=== PATIENT | female | born 1940 | race Caucasian/White ===

== ENCOUNTER 2018-10-09 16:14 | Inpatient (IN) | payer MEDICARE ==
[2018-10-09] MEDS ORDERED: DULCOLAX10 MG/SUPP RC (16:21)
[2018-10-09] MEDS ORDERED: BISOPROLOL-HCT1 EAC1 PO (16:24)
[2018-10-09 16:49] LABS: HEMATOCRIT 31.4 % (36.0-48.0); HEMOGLOBIN 10.8 g/dL (12-16); MCH 27.5 pg (26.0-34.0); MCHC 34.4 g/dL (31.0-37.0); MCV 79.9 fL (80.0-100.0); RBC 3.93 10x6/uL (4.00-5.40); RDW 15.2 % (11.5-14.5)
[2018-10-09 17:03] LABS: ALBUMIN 3.3 g/dL (3.4-5.0); ANION GAP 13.2 mmol/L (8-16); BILIRUBIN - TOTAL 0.88 mg/dL (0.2-1.3); CALCIUM 8.3 mg/dL (8.5-10.1); CARBON DIOXIDE 24.7 mmol/L (21.0-32.0); POTASSIUM - SERUM 3.9 mmol/L (3.5-5.1); PROTEIN - SERUM 6.4 g/dL (6.4-8.2)
[2018-10-09 17:07] LABS: TROPONIN-I 0.031 ng/mL (0.000-0.060)
[2018-10-09 17:09] LABS: WBC 1.1 10x3/uL (4.8-10.8)
[2018-10-09 17:11] LABS: PLATELET COUNT 30 10x3/uL (130-400)
[2018-10-09 17:32] LABS: APPEARANCE CLEAR (CLEAR); BILIRUBIN NEGATIVE (NEGATIVE); COLOR YELLOW (YELLOW); GLUCOSE NEGATIVE (NEGATIVE); KETONE NEGATIVE (NEGATIVE); NITRITE NEGATIVE (NEGATIVE); PROTEIN 1+ mg/dL (NEGATIVE); UROBILINOGEN NORMAL (NORMAL)
[2018-10-09 17:33] LABS: EPITHELIAL CELLS OCC /hpf (0-5); RED CELLS - URINE OCC /hpf (0-5); WHITE CELLS - URINE 0-5 /hpf (0-5)
[2018-10-09 17:34] LABS: BACTERIA MANY /hpf (NONE SEEN)
[2018-10-09 17:45] LABS: APTT 35.3 SECONDS (22.8-39.4); INR 1.06 (0.85-1.17); PROTIME 13.3 SECONDS (11.6-15.0)
[2018-10-09 17:48] VITALS: BP 116/50
[2018-10-09 17:48] LABS: LYMPHOCYTES 36 % (15-50); MONOCYTES 4 % (2-11); NEUTROPHILS 56 % (40-80); PLATELET ESTIMATE DECREASED
[2018-10-09 18:09] LABS: % SATURATION 12 % (15-55); IRON 29 ug/dl (35-150); TOTAL IRON BIND CAPACITY 234 ug/dl (260-445); UNSAT IRON BIND CAPACITY 205 ug/dl (150-375)
[2018-10-09 18:30] VITALS: BP 119/53
--- NOTE | 2018-10-09 19:21 | NUR ---
REPORT CALLED TO [facility]ORY LAMB BY SBAR FORMAT
--- NOTE | 2018-10-09 19:45 | NUR ---
RECEIVED PT TO FLOOR FROM ER VIA STRETCHER. PT ALERT & ORIENTED. REVIEWED HOME MEDS AND HISTORY. CHIEF COMPLAINT IS WEAKNESS AND HEADACHE. PT WAS GIVEN PAIN MED IN ER AND NOW RATES PAIN 2-3 OUT OF 10. ASSISTED PT UP TO BATHROOM TO VOID. NO OTHER NEEDS. WILL CONTINUE TO MONITOR.
[2018-10-09] MEDS ORDERED: BISOPROLOL FUMARATE PO (19:48)
[2018-10-09] MEDS ORDERED: HYDROCHLOROTH12.5 M1 PO (19:50)
[2018-10-09] MEDS ORDERED: BACLOFEN10 MG PO (19:51)
[2018-10-09 23:49] VITALS: BP 120/56; BMI 21.1
[2018-10-10 00:33] VITALS: BP 103/47
[2018-10-10 04:39] VITALS: BP 116/46
[2018-10-10 05:29] LABS: BASOPHILS 6.8 % (0-2); EOSINOPHILS 0 % (0-7); HEMATOCRIT 30.2 % (36.0-48.0); HEMOGLOBIN 10.2 g/dL (12-16); IMMATURE GRANULOCYTES 1.1 % (0-5); LYMPHOCYTES 46.6 % (15-50); MCH 27.4 pg (26.0-34.0); MCHC 33.8 g/dL (31.0-37.0); MCV 81.2 fL (80.0-100.0); MONOCYTES 11.4 % (2-11); NEUTROPHILS 34.1 % (40-80); RBC 3.72 10x6/uL (4.00-5.40); RDW 15.5 % (11.5-14.5)
[2018-10-10 05:34] LABS: WBC 0.9 10x3/uL (4.8-10.8)
[2018-10-10 05:35] LABS: PLATELET COUNT 26 10x3/uL (130-400)
[2018-10-10 06:00] LABS: ALBUMIN 2.8 g/dL (3.4-5.0); ALKALINE PHOSPHATASE 59 U/L (46-116); ALT (SGPT) 56 U/L (10-68); BILIRUBIN - TOTAL 0.73 mg/dL (0.2-1.3); CALCIUM 7.6 mg/dL (8.5-10.1); CARBON DIOXIDE 25.9 mmol/L (21.0-32.0); CHLORIDE - SERUM 98 mmol/L (98-107); GLUCOSE 88 mg/dL (74-106); POTASSIUM - SERUM 3.6 mmol/L (3.5-5.1); PROTEIN - SERUM 5.7 g/dL (6.4-8.2); SODIUM 132 mmol/L (136-145); eGFR NON AFRICAN AMERICAN 86 mL/min (90-120)
[2018-10-10 06:06] LABS: CALC OSMOLALITY 267 mosm/kg (275-300); CREATININE - SERUM 0.7 mg/dL (0.6-1.3); UREA NITROGEN 23 mg/dL (7-18)
[2018-10-10 08:09] VITALS: BP 104/43
--- NOTE | 2018-10-10 09:00 | NUR ---
ALERT AND ORIENTED X3 WITH GENERALIZED ACHING NOTED. PT ON NEUTROPENIC ISOLATION AT THIS TIME. LEIA MAT IN PLANCE DUE TO FALL RISK. LUNGS CTA AND HRRR. ENCOURAGED TO USE CALL LIGHT FOR ASSSIT.
[2018-10-10 12:12] VITALS: BP 112/50
[2018-10-10 15:18] LABS: ERYTHROCYTE SEDIMENTATION RATE 5 mm/hr (0-30)
[2018-10-10 16:22] VITALS: BP 124/54
[2018-10-10 20:28] VITALS: BP 122/50
--- NOTE | 2018-10-10 21:40 | NUR ---
ASSISTED PT UP TO BATHROOM. STEADY GAIT. ASSESSMENT COMPLETE PER FLOW-SHEET. ANTIBIOTIC INFUSING. DENIES PAIN. STATES SHE IS "FEELING A LITTLE BETTER TODAY." NO OTHER NEEDS. WILL CONTINUE TO MONITOR.
[2018-10-11 05:46] LABS: HEMATOCRIT 27.5 % (36.0-48.0); HEMOGLOBIN 9.2 g/dL (12-16); MCH 27.2 pg (26.0-34.0); MCHC 33.5 g/dL (31.0-37.0); MCV 81.4 fL (80.0-100.0); MEAN PLATELET VOLUME 11.2 fL (7.4-10.4); RBC 3.38 10x6/uL (4.00-5.40); RDW 15.6 % (11.5-14.5)
[2018-10-11 05:47] LABS: PLATELET COUNT 40 10x3/uL (130-400); WBC 1.3 10x3/uL (4.8-10.8)
[2018-10-11 06:18] LABS: CALC OSMOLALITY 262 mosm/kg (275-300); CALCIUM 7.3 mg/dL (8.5-10.1); CARBON DIOXIDE 25.1 mmol/L (21.0-32.0); CHLORIDE - SERUM 100 mmol/L (98-107); CREATININE - SERUM 0.7 mg/dL (0.6-1.3); GLUCOSE 83 mg/dL (74-106); SODIUM 132 mmol/L (136-145); UREA NITROGEN 10 mg/dL (7-18); eGFR NON AFRICAN AMERICAN 86 mL/min (90-120)
[2018-10-11 07:29] LABS: LYMPHOCYTES 42 % (15-50); MONOCYTES 18 % (2-11); NEUTROPHILS 38 % (40-80); PLATELET ESTIMATE DECREASED; PLATELET MORPHOLOGY NORMAL PLT MORPH
[2018-10-11 09:39] VITALS: BP 121/70
[2018-10-11 14:17] VITALS: BP 114/55
[2018-10-11 16:59] VITALS: BP 118/56
[2018-10-11 20:00] VITALS: BP 122/59
--- NOTE | 2018-10-11 22:49 | NUR ---
PT C/O OF GENERALIZED PAIN 08/12. GAVE MORPHINE 2 MG IV PUSH. INSURANCE CLAIMS SPECIALIST GIVING PT BED BATH AND CHANGING LINEN. ASSESSMENT COMPLETE PER FLOW-SHEET. NO OTHER NEEDS. WILL REASSESS AND CONTINUE TO MONITOR.
[2018-10-12] VITALS: BP 111/48
[2018-10-12 04:00] VITALS: BP 118/60
[2018-10-12 06:46] LABS: HEMATOCRIT 28.6 % (36.0-48.0); HEMOGLOBIN 9.4 g/dL (12-16); MCH 27.1 pg (26.0-34.0); MCHC 32.9 g/dL (31.0-37.0); MCV 82.4 fL (80.0-100.0); MEAN PLATELET VOLUME 10.7 fL (7.4-10.4); RBC 3.47 10x6/uL (4.00-5.40); RDW 15.6 % (11.5-14.5)
[2018-10-12 06:54] LABS: CALC OSMOLALITY 266 mosm/kg (275-300); CALCIUM 7.2 mg/dL (8.5-10.1); CARBON DIOXIDE 28.4 mmol/L (21.0-32.0); CHLORIDE - SERUM 101 mmol/L (98-107); CREATININE - SERUM 0.6 mg/dL (0.6-1.3); GLUCOSE 87 mg/dL (74-106); SODIUM 135 mmol/L (136-145); UREA NITROGEN 8 mg/dL (7-18); eGFR NON AFRICAN AMERICAN > 90 mL/min (90-120)
[2018-10-12 06:56] LABS: PLATELET COUNT 57 10x3/uL (130-400); WBC 2.6 10x3/uL (4.8-10.8)
[2018-10-12 06:57] LABS: POTASSIUM - SERUM 2.8 mmol/L (3.5-5.1)
[2018-10-12 08:14] LABS: APTT 32.6 SECONDS (22.8-39.4); INR 1.03 (0.85-1.17)
[2018-10-12 09:10] LABS: EOSINOPHILS 2 % (0-7); LYMPHOCYTES 72 % (15-50); MONOCYTES 5 % (2-11); NEUTROPHILS 21 % (40-80); PLATELET ESTIMATE DECREASED; ROULEAUX 2+
[2018-10-12 09:40] VITALS: BP 130/55
--- NOTE | 2018-10-12 10:00 | NUR ---
PATIENT BACK FROM BONE MARROW BIOPSY. NO COMPLAINTS OR SIGNS OF DISTRESS. IV INTACT. CALL LIGHT WITHIN REACH.
[2018-10-12 10:23] LABS: MAGNESIUM - SERUM 2.1 mg/dL (1.8-2.4); PHOSPHOROUS 1.9 mg/dL (2.5-4.9)
[2018-10-12 13:55] VITALS: BP 121/54
[2018-10-12 17:39] VITALS: BP 147/60
--- NOTE | 2018-10-12 18:30 | NUR ---
IV IN IN RIGHT FA LEAKING. REMOVED WITH CATH TIP INTACT. RESTARTED IV IN LEFT FA X 2 STICKS AT THIS TIME. IVF INFUSING. NO COMPLAINTS. CALL LIGHT WITHIN REACH.
--- NOTE | 2018-10-12 20:00 | NUR ---
ASSESSMENT PER FLOWSHEET. PT IN NEUTROPENIC ISOLATION. IV PATENT LEFT FOREARM OF NS AT 100CC'S/HR SITE CLEAR. SR UP X2 CALL LIGHT WITHIN REACH.
[2018-10-12 20:34] VITALS: BP 150/69
--- NOTE | 2018-10-12 22:00 | NUR ---
MEDS GIVEN PER MAR.
--- NOTE | 2018-10-13 | NUR ---
EYES CLOSED RESPIRATIONS WITH EASE AND UNLABORED.
[2018-10-13 01:04] VITALS: BP 152/69
--- NOTE | 2018-10-13 01:52 | NUR ---
RESTING QUIETLY DENIES NEEDS.
[2018-10-13 05:58] VITALS: BP 143/70
[2018-10-13 06:14] LABS: BASOPHILS 1.7 % (0-2); EOSINOPHILS 0.6 % (0-7); HEMATOCRIT 28.8 % (36.0-48.0); HEMOGLOBIN 9.6 g/dL (12-16); IMMATURE GRANULOCYTES 0.3 % (0-5); LYMPHOCYTES 74.4 % (15-50); MCHC 33.3 g/dL (31.0-37.0); MCV 81.1 fL (80.0-100.0); MEAN PLATELET VOLUME 9.7 fL (7.4-10.4); MONOCYTES 9.2 % (2-11); NEUTROPHILS 13.8 % (40-80); RBC 3.55 10x6/uL (4.00-5.40); RDW 15.3 % (11.5-14.5)
[2018-10-13 06:21] LABS: PLATELET COUNT 84 10x3/uL (130-400); WBC 3.5 10x3/uL (4.8-10.8)
[2018-10-13 06:35] LABS: CALC OSMOLALITY 273 mosm/kg (275-300); CALCIUM 7.3 mg/dL (8.5-10.1); CHLORIDE - SERUM 102 mmol/L (98-107); CREATININE - SERUM 0.6 mg/dL (0.6-1.3); GLUCOSE 90 mg/dL (74-106); POTASSIUM - SERUM 3.4 mmol/L (3.5-5.1); SODIUM 138 mmol/L (136-145); UREA NITROGEN 6 mg/dL (7-18); eGFR NON AFRICAN AMERICAN > 90 mL/min (90-120)
[2018-10-13 08:23] VITALS: BP 129/60
[2018-10-13 08:54] VITALS: BMI 21.1
[2018-10-13 09:15] LABS: HAPTOGLOBIN 182 mg/dL (34-200)
--- NOTE | 2018-10-13 10:00 | NUR ---
PATIENT UP IN CHAIR WITH NO COMPLAINTS AT THIS TIME. CALL LIGHT WITHIN REACH.
[2018-10-13 10:16] LABS: HEPATITIS C ANTIBODY 0.1 S/CO RAT (0.0-0.9)
[2018-10-13 11:58] VITALS: BP 159/65
--- NOTE | 2018-10-13 12:11 | MORECARE ---
CASE MANAGEMENT DISCHARGE SUMMARY PATIENT: SPIKE PATIÑO UNIT: [id number] ADM DATE: 10/09/18 AGE: 78 : 42 SEX: F ROOM/BED: D.2215 AUTHOR: DESMOND,DOC PHYSICIAN: REFERRING PHYSICIAN: AKASH TABARES MD DATE OF SERVICE: 10/13/18 Discharge Plan Patient Name: SPIKE PATIÑO Facility: [facility]:[place] : 1940 Planned Disposition: Home or Self Care Anticipated Discharge Date: Discharge Date: Expected LOS: Initial Reviewer: [email or web address] Initial Review Date: 10/09/2018 Generated: 10/13/18 1:10 pm Comments DCP- Discharge Planning Updated by [id number]: Gillian Means on 10/13/18 11:[address] Patient Name: SPIKE PATIÑO Admission Status: ER Accout number: [id number] Admission Date: 10-09-2018 : 1940 Admission Diagnosis:OTHER PANCYTOPENIA Attending: AKASH TABARES Current LOS: 4 Anticipated DC Date: Planned Disposition: Home or Self Care Primary Insurance: MEDICARE A & B Discharge Planning Comments: CM met with patient to complete initial dc planning assessment. CM educated patient on the CM role and verbal consent given by patient to complete assessment. Patient lives at home where she is independent with her care. At discharge patient plans to return home and feels this is a safe discharge. CM discussed availability of home health, rehab services, and medical equipment. She stated that [employer] has medical equipment in her shed, but she does not use any of it. Her brother will be driving her home at DC. IMM served and explained. Patient denied known discharge needs at this time. CM will continue to follow and will assist as needed with dc plans/needs. Public Interviewer: Gillian Means DCPIA - Discharge Planning Initial Assessment Updated by [email or web address]: Gillian Means on 10/13/18 12:04 pm * Is the patient Alert and Oriented? Yes * How many steps to enter\exit or inside your home? * PCP WAGNER * Pharmacy [facility] [address] * Preadmission Environment Home Alone * ADLs Independent * Equipment None * Other Equipment ASS EQUIPMENT IN A SHED, BUT DOES NOT USE * List name and contact numbers for known caregivers / representatives who currently or will assist patient after discharge: SARAH VILLARREAL (BROTHER) [phone] * Verbal permission to speak to the caregivers and representatives has been obtained from the patient. N/A * Community resources currently utilized None * Additional services required to return to the preadmission environment? No * Can the patient safely return to the preadmission environment? Yes * Has this patient been hospitalized within the prior 30 days at any hospital? No Coverage Notice Reviewer: [id number] Gretel Means Notice Issued Date-Time: 10/13/2018 11:45 Notice Type: IM Discharge Notice Notice Delivered To: Patient Relationship to Patient: Gas Pump Attendant Name: Delivery Method: HAND - Hand Delivered Lisa Days: Prior Verbal Notification: Recipient Understood Notice: Yes Recipient Signature: Yes Med Rec Note Co-signed by Attending: Coverage Notice Comment: Patient Name: SPIKE PATIÑO Page [id number] at 1211 All edits/amendments must be made on the electronic document DICTATION DATE: 10/13/18 1210 CUFF STITCHER: JAIRO 10/13/18 1210 RPT#: [id number] DC DATE: STATUS: ADM IN [facility] [address] [place] [address] END OF REPORT
[2018-10-13 16:43] VITALS: BP 144/64
--- NOTE | 2018-10-13 18:45 | NUR ---
PATIENT IN BED WITH IV INTACT. NO COMPLAINTS. CALL LIGHT WITHIN REACH.
--- NOTE | 2018-10-13 20:00 | NUR ---
ASSESSMENT PER FLOWSHEET. IV PATENT LEFT FOREARM OF NS AT 100CC'S/HR SITE CLEAR. SR UP X2 CALL LIGHT WITHIN REACH. LEIA MAT IN USE ALARMS SET.
[2018-10-13 20:55] VITALS: BP 154/75
--- NOTE | 2018-10-13 21:15 | NUR ---
MEDS GIVEN PER MAR. RESTING QUIETLY DENIES NEEDS.
[2018-10-14 01:22] VITALS: BP 160/64
--- NOTE | 2018-10-14 04:02 | NUR ---
AWAKE UP WITH HELP TO BR VOIDS WELL.ASSISTED BACK TO BED SR UP X2 CALL LIGHT WITHIN REACH.
[2018-10-14 05:57] LABS: HEMATOCRIT 29.2 % (36.0-48.0); HEMOGLOBIN 9.6 g/dL (12-16); MCHC 32.9 g/dL (31.0-37.0); MCV 82.3 fL (80.0-100.0); MEAN PLATELET VOLUME 9.1 fL (7.4-10.4); RBC 3.55 10x6/uL (4.00-5.40); RDW 15.4 % (11.5-14.5); WBC 2.8 10x3/uL (4.8-10.8)
[2018-10-14 06:04] LABS: CALC OSMOLALITY 273 mosm/kg (275-300); CALCIUM 7.5 mg/dL (8.5-10.1); CARBON DIOXIDE 27.8 mmol/L (21.0-32.0); CHLORIDE - SERUM 104 mmol/L (98-107); CREATININE - SERUM 0.5 mg/dL (0.6-1.3); GLUCOSE 93 mg/dL (74-106); POTASSIUM - SERUM 3.3 mmol/L (3.5-5.1); SODIUM 138 mmol/L (136-145); UREA NITROGEN 7 mg/dL (7-18); eGFR NON AFRICAN AMERICAN > 90 mL/min (90-120)
[2018-10-14 06:12] LABS: PLATELET COUNT 106 10x3/uL (130-400)
--- NOTE | 2018-10-14 08:45 | NUR ---
PATIENT IV LEAKING AND TENDER. REMOVED WITH CATH TIP INTACT. NO COMPLAINTS OR SIGNS OF DISTRESS. CALL LIGHT WITHIN REACH.
[2018-10-14 09:26] LABS: LYMPHOCYTES 52 % (15-50); MONOCYTES 10 % (2-11); NEUTROPHILS 36 % (40-80); PLATELET ESTIMATE DECREASED
[2018-10-14 09:27] LABS: ANISOCYTOSIS OCC
[2018-10-14 09:45] VITALS: BP 135/51
--- NOTE | 2018-10-14 10:52 | NUR ---
PATIENT IN CHAIR WITH NO COMPLAINTS OR SIGNS OF DISTRESS. AMBULATING IN ROOM WITH WALKER AT TIMES WITH NO PROBLEMS. ABLE TO MOVE AROUND WITH BETTER BALANCE THAN THE LAST 2 DAYS. FEELING BETTER AND ABLE TO EAT BETTER WELL. NO IV, OK WITH DR. MARAVILLA. CHANGED ANTIBIOTICS TO PO. ASSISTED PATIENT IN DRESSING. CALL LIGHT WITHIN REACH.
--- NOTE | 2018-10-14 14:02 | NUR ---
PATIENT IN BED WITH IV INTACT. NO COMPLAINTS OR SIGNS OF DISTRESS. REPORT GIVEN TO CARLOTA DODSON.
[2018-10-14 14:12] VITALS: BP 137/69
[2018-10-14 14:12] LABS: EHRLICHIA CHAFF IGG Negative (Neg:<1:64); EHRLICHIA CHAFF IGM Negative (Neg:<1:20); HGE IGG TITER Negative (Neg:<1:64); HGE IGM TITER Negative (Neg:<1:20)
--- NOTE | 2018-10-14 14:30 | NUR ---
REPORT RECD FROM HENRY CARNEY RN. CARE OF PATIENT ASSUMED. PT DENIES PRESENCE OF PAIN/N/V AND/OR DYSPNEA AT THIS TIME. PT INFORMED OF THE NEED FOR A STOOL SAMPLE. PT DENIES ABILITY TO DEFECATE AT THIS TIME. PT REFUSES SCDS. PT DENIES FURTHER NEEDS AT THIS TIME. BED IS IN THE LOWEST POSITION. CALL LIGHT AND BEDSIDE TABLE ARE WITHIN REACH. SIDE RAILS X 2. WILL CONT TO MONITOR.
[2018-10-14 17:22] VITALS: BP 157/68
[2018-10-14 18:08] LABS: RMSF IGM 0.21 index (0.00-0.89)
--- NOTE | 2018-10-14 20:00 | NUR ---
ASSESSMENT PER FLOWSHEET. SR UP X2 CALL LIGHT WITHIN REACH. DENIES NEEDS.
[2018-10-14 20:51] VITALS: BP 150/78
--- NOTE | 2018-10-14 21:00 | NUR ---
MEDS GIVEN PER MAR.
--- NOTE | 2018-10-15 00:54 | NUR ---
EYES CLOSED RESPIRATIONS WITH EASE AND UNLABORED.
[2018-10-15 01:35] VITALS: BP 147/64
--- NOTE | 2018-10-15 04:15 | NUR ---
EYES CLOSED RESPIRATIONS WITH EASE AND UNLABORED.
[2018-10-15 05:44] LABS: BASOPHILS 0.4 % (0-2); EOSINOPHILS 1.1 % (0-7); HEMATOCRIT 28.9 % (36.0-48.0); HEMOGLOBIN 9.4 g/dL (12-16); IMMATURE GRANULOCYTES 0.4 % (0-5); LYMPHOCYTES 54.4 % (15-50); MCH 26.9 pg (26.0-34.0); MCHC 32.5 g/dL (31.0-37.0); MCV 82.6 fL (80.0-100.0); MEAN PLATELET VOLUME 9.1 fL (7.4-10.4); MONOCYTES 13.3 % (2-11); NEUTROPHILS 30.4 % (40-80); RDW 16.1 % (11.5-14.5); WBC 2.6 10x3/uL (4.8-10.8)
[2018-10-15 05:54] LABS: PLATELET COUNT 149 10x3/uL (130-400)
[2018-10-15 06:31] VITALS: BP 154/80
[2018-10-15 06:43] LABS: CALC OSMOLALITY 272 mosm/kg (275-300); CALCIUM 8.4 mg/dL (8.5-10.1); CARBON DIOXIDE 27.1 mmol/L (21.0-32.0); CHLORIDE - SERUM 104 mmol/L (98-107); CREATININE - SERUM 0.6 mg/dL (0.6-1.3); GLUCOSE 86 mg/dL (74-106); POTASSIUM - SERUM 4.3 mmol/L (3.5-5.1); SODIUM 138 mmol/L (136-145); UREA NITROGEN 8 mg/dL (7-18); eGFR NON AFRICAN AMERICAN > 90 mL/min (90-120)
--- NOTE | 2018-10-15 07:41 | NUR ---
REC'D SITTING ON SIDE OF BED AWAKE AND ALERT. RESP EVEN AND UNLABORED WITH NO DISTRESS NOTED. CAN EXPRESS NEEDS AND WANTS. DENIES ANY PAIN OR DISCOMFORT AT THIS TIME. ASSESSMENT COMPLETED. C/L IN REACH AT BEDSIDE.
[2018-10-15 10:10] VITALS: BP 129/62
[2018-10-15] MEDS ORDERED: FLORAJEN3 CAPS460 MG PO (11:09)
[2018-10-15] MEDS ORDERED: COLACE100 MG PO (11:09)
[2018-10-15] MEDS ORDERED: PROTONIX40 MG PO (11:09)
[2018-10-15] MEDS ORDERED: OMNICEF300 MG PO (11:09)
--- NOTE | 2018-10-15 12:35 | MORECARE ---
CASE MANAGEMENT DISCHARGE SUMMARY PATIENT: SPIKE PATIÑO UNIT: [id number] ADM DATE: 10/09/18 AGE: 78 : 42 SEX: F ROOM/BED: D.2215 AUTHOR: CHAVEZ LOGAN PHYSICIAN: REFERRING PHYSICIAN: AKASH TABARES MD DATE OF SERVICE: 10/15/18 Discharge Plan Patient Name: SPIKE PATIÑO Facility: [facility]:[place] : 1940 Planned Disposition: Home or Self Care Anticipated Discharge Date: Discharge Date: Expected LOS: Initial Reviewer: [email or web address] Initial Review Date: 10/09/2018 Generated: 10/15/18 1:34 pm Comments DCP- Discharge Planning Updated by [email or web address]: Gillian Means on 10/15/18 11:[address] Patient Name: SPIKE PATIÑO Encounter No: [id number] : 1940 Primary Insurance: MEDICARE A & B Anticipated DC Date: Planned Disposition: Home or Self Care External Planned Provider: : DCP follow-up note: Patient and family in agreement with discharge plan. No changes to plan. Refusal for home health signed and placed in chart. Case management will follow and assist as needed. Gillian Means DCP- Discharge Planning Updated by [email or web address]: Gillian Means on 10/13/18 11:[address] Patient Name: SPIKE PATIÑO Admission Status: ER Accout number: [id number] Admission Date: 10-09-2018 : 1940 Admission Diagnosis:OTHER PANCYTOPENIA Attending: AKASH TABARES Current LOS: 4 Anticipated DC Date: Planned Disposition: Home or Self Care Primary Insurance: MEDICARE A & B Discharge Planning Comments: CM met with patient to complete initial dc planning assessment. CM educated patient on the CM role and verbal consent given by patient to complete assessment. Patient lives at home where she is independent with her care. At discharge patient plans to return home and feels this is a safe discharge. CM discussed availability of home health, rehab services, and medical equipment. She stated that [employer] has medical equipment in her shed, but she does not use any of it. Her brother will be driving her home at DC. IMM served and explained. Patient denied known discharge needs at this time. CM will continue to follow and will assist as needed with dc plans/needs. Email Marketing Coordinator: Gillian Means DCPIA - Discharge Planning Initial Assessment Updated by [email or web address]: Gillian Means on 10/13/18 12:04 pm * Is the patient Alert and Oriented? Yes * How many steps to enter\exit or inside your home? * PCP WAGNER * Pharmacy [facility] [address] * Preadmission Environment Home Alone * ADLs Independent * Equipment None * Other Equipment ASS EQUIPMENT IN A SHED, BUT DOES NOT USE * List name and contact numbers for known caregivers / representatives who currently or will assist patient after discharge: SARAH VILLARREAL (BROTHER) [phone] * Verbal permission to speak to the caregivers and representatives has been obtained from the patient. N/A * Community resources currently utilized None * Additional services required to return to the preadmission environment? No * Can the patient safely return to the preadmission environment? Yes * Has this patient been hospitalized within the prior 30 days at any hospital? No Coverage Notice Reviewer: [id number] - Gillian Means Notice Issued Date-Time: 10/13/2018 11:45 Notice Type: IM Discharge Notice Notice Delivered To: Patient Relationship to Patient: Marine Electrician Apprentice Name: Delivery Method: HAND - Hand Delivered Lisa Days: Prior Verbal Notification: Recipient Understood Notice: Yes Recipient Signature: Yes Med Rec Note Co-signed by Attending: Coverage Notice Comment: Last DP export: 10/13/18 11:10 a Patient Name: SPIKE PATIÑO Page [id number] at 1235 All edits/amendments must be made on the electronic document DICTATION DATE: 10/15/18 1234 LOADER SEMICONDUCTOR DIES: JAIRO 10/15/18 1234 RPT#: [id number] [place] DATE: STATUS: ADM IN [facility] [address] [place] [address] END OF REPORT
--- NOTE | 2018-10-15 13:47 | NUR ---
DC HOME AT THIS TIME VOICE UNDERSTANDING OF DC INSTRUCTION. FAMILY AT BEDSIDE AND VOICE UNDERSTANDING WELL. NO C/O NOTED UPON DEPARTURE INSTABLE CONDITION UPON DEPARTURE.
--- NOTE | 2018-10-22 11:45 | MORECARE ---
CASE MANAGEMENT DISCHARGE SUMMARY PATIENT: SPIKE PATIÑO UNIT: [id number] ADM DATE: 10/09/18 AGE: 78 : 42 SEX: F ROOM/BED: D.2215 AUTHOR: CHAVEZ LOGAN PHYSICIAN: REFERRING PHYSICIAN: AKASH TABARES MD DATE OF SERVICE: 10/22/18 Discharge Plan Patient Name: SPIKE PATIÑO Facility: [facility]:[place] : 1940 Planned Disposition: Home or Self Care Anticipated Discharge Date: Discharge Date: 10/15/2018 Expected LOS: 0 Initial Reviewer: [id number] Initial Review Date: 10/09/2018 Generated: 10/22/18 12:45 pm Comments DCP- Discharge Planning Updated by [email or web address]: Gillian Means on 10/15/18 11:[address] Patient Name: SPIKE PATIÑO Encounter No: [id number] : 1940 Primary Insurance: MEDICARE A & B Anticipated DC Date: Planned Disposition: Home or Self Care External Planned Provider: : DCP follow-up note: Patient and family in agreement with discharge plan. No changes to plan. Refusal for home health signed and placed in chart. Case management will follow and assist as needed. Gillian Means DCP- Discharge Planning Updated by [email or web address]: Gillian Means on 10/13/18 11:[address] Patient Name: SPIKE PATIÑO Admission Status: ER Accout number: [id number] Admission Date: 10-09-2018 : 1940 Admission Diagnosis:OTHER PANCYTOPENIA Attending: AKASH TABARES Current LOS: 4 Anticipated DC Date: Planned Disposition: Home or Self Care Primary Insurance: MEDICARE A & B Discharge Planning Comments: CM met with patient to complete initial dc planning assessment. CM educated patient on the CM role and verbal consent given by patient to complete assessment. Patient lives at home where she is independent with her care. At discharge patient plans to return home and feels this is a safe discharge. CM discussed availability of home health, rehab services, and medical equipment. She stated that [facility] has medical equipment in her shed, but she does not use any of it. Her brother will be driving her home at DC. IMM served and explained. Patient denied known discharge needs at this time. CM will continue to follow and will assist as needed with dc plans/needs. Briefcase Sewer: Gillian Means DCPIA - Discharge Planning Initial Assessment Updated by [email or web address]: Gillian Means on 10/13/18 12:04 pm * Is the patient Alert and Oriented? Yes * How many steps to enter\exit or inside your home? * PCP WAGNER * Pharmacy [facility] [address] * Preadmission Environment Home Alone * ADLs Independent * Equipment None * Other Equipment ASS EQUIPMENT IN A SHED, BUT DOES NOT USE * List name and contact numbers for known caregivers / representatives who currently or will assist patient after discharge: SARAH VILLARREAL (BROTHER) [phone] * Verbal permission to speak to the caregivers and representatives has been obtained from the patient. N/A * Community resources currently utilized None * Additional services required to return to the preadmission environment? No * Can the patient safely return to the preadmission environment? Yes * Has this patient been hospitalized within the prior 30 days at any hospital? No Coverage Notice Reviewer: [id number] - Gillian Means Notice Issued Date-Time: 10/13/2018 11:45 Notice Type: IM Discharge Notice Notice Delivered To: Patient Relationship to Patient: Surgical Aide Name: Delivery Method: HAND - Hand Delivered Lisa Days: Prior Verbal Notification: Recipient Understood Notice: Yes Recipient Signature: Yes Med Rec Note Co-signed by Attending: Coverage Notice Comment: Last DP export: 10/15/18 11:35 a Patient Name: SPIKE PATIÑO Page [phone] at 1145 All edits/amendments must be made on the electronic document DICTATION DATE: 10/22/18 1145 DEPARTMENT SUPERVISOR: JAIRO 10/22/18 1145 RPT#: [id number] DC DATE:10/15/18 STATUS: DIS IN [facility] [address] [place] [address] END OF REPORT
== END 2018-10-15 13:48 | disposition home or self-care (01) | DRG 808 ==
LOC: D.ER 16:14 → D.MS 17:58
PROVIDERS: Emergency Medicine; Family Medicine; General Practice; Internal Medicine Hematology & Oncology; ADMIT Internal Medicine Nephrology; ATTEND Internal Medicine Nephrology
PROC: 07DR3ZX Extraction of Iliac Bone Marrow, Percutaneous Approach, Diagnostic (ICD-10-PCS; principal; 2018-10-12 08:37)
DX: D61.818 Other pancytopenia (principal); A41.9 Sepsis, unspecified organism; N39.0 Urinary tract infection, site not specified; A93.8 Other specified arthropod-borne viral fevers; E87.1 Hypo-osmolality and hyponatremia; E86.0 Dehydration; I10 Essential (primary) hypertension

== ENCOUNTER → 2019-05-24 08:48 | Outpatient (CLI) | payer MEDICARE ==
[~2019-05-24 08:48] MED LIST: BACLOFEN10 MG PO; BISOPROLOL FUMARATE PO; BISOPROLOL-HCT1 EAC1 PO; COLACE100 MG PO; DULCOLAX10 MG/SUPP RC; FLORAJEN3 CAPS460 MG PO; HYDROCHLOROTH12.5 M1 PO; OMNICEF300 MG PO; PROTONIX40 MG PO
== END | disposition home or self-care (01) ==
LOC: D.CT 08:48
PROVIDERS: ATTEND Family Medicine
DX: R93.89 Abnormal findings on diagnostic imaging of other specified body structures (principal)

== ENCOUNTER → 2019-12-29 09:10 | Outpatient (CLI) | payer MEDICARE | END | disposition home or self-care (01) | LOC: D.HCCECHO 09:10 | PROVIDERS: ATTEND Internal Medicine Cardiovascular Disease | DX: R06.00 Dyspnea, unspecified (principal); I25.10 Atherosclerotic heart disease of native coronary artery without angina pectoris ==